=== PATIENT | female | born 1990 | race Caucasian/White ===

== ENCOUNTER 2017-01-08 14:22 | Emergency (ER) | payer MEDICAID ==
[~2017-01-08] VITALS: Ht 152.4 cm; Wt 102.7 kg
[~2017-01-08 14:22] MED LIST: CITA10TA4 PO; HYDR-3241 PO; METF500T4 PO; SPIR50TA2 PO; THYR60TA4 PO
[2017-01-08] MEDS ORDERED: ONDANSETRON 2MG/ML, 2ML ONE (15:28)
[2017-01-08] MEDS ORDERED: MORPHINE SULFATE 4 MG/ML, 1ML ONE (15:28)
[2017-01-08] MEDS ORDERED: MORPHINE SULFATE 4 MG/ML, 1ML IVPush ONE (15:30)
[2017-01-08] MEDS ORDERED: SODIUM CHLORIDE 0.9% 1,000ML IVBOLUS ONE (15:30)
[2017-01-08] MEDS ORDERED: SODIUM CHLORIDE FLUSH 10ML SYR IVF ONE (15:30)
[2017-01-08] MEDS ORDERED: ONDANSETRON 2MG/ML, 2ML IVPush ONE (15:30)
[2017-01-08 15:38] LABS: PATH.CAST-FLAG NOT PRESENT; SPERM-FLAG NOT PRESENT; SRC-FLAG NOT PRESENT; XTAL-FLAG NOT PRESENT; YLC-FLAG NOT PRESENT
[2017-01-08 15:43] LABS: BLOOD UREA NITROGEN 13 mg/dL (7-18)
[2017-01-08 15:49] LABS: ASPARTATE AMINO TRANSFERASE 19 U/L (15-37)
[2017-01-08] MEDS ORDERED: KETOROLAC 30 MG/1 ML ONE (16:20)
[2017-01-08] MEDS ORDERED: KETOROLAC 30 MG/1 ML IVPush ONE (16:30)
[2017-01-08 17:20] VITALS: BP 156/50
[2017-01-08] MEDS ORDERED: CEFTRIAXONE 1,000 MG ONE (17:42)
[2017-01-08] MEDS ORDERED: CEFTRIAXONE 1,000 MG IM ONE (18:00)
== END 2017-01-08 18:20 ==
LOC: ED 15:15
DX: R10.2 Pelvic and perineal pain (principal); E11.9 Type 2 diabetes mellitus without complications; N76.0 Acute vaginitis
CPT/HCPCS: 36415; 76830; 80053; 81001; 83690; 84703; 85025; 87086; 87210; 87491; 87591; 87808; 96361; 96372; 96374; 96375; 99285; J0696; J1885; J2405; J7030

== ENCOUNTER 2018-05-11 22:25 | Outpatient (CLI) | payer MEDICAID ==
[~2018-05-11] VITALS: Ht 152.4 cm; Wt 100.0 kg
[~2018-05-11 22:25] MED LIST changes: +METF500T17 PO; -METF500T4 PO; -SPIR50TA2 PO; +SPIR50TA4 PO
[2018-05-11 22:59] VITALS: BP 144/67
[2018-05-11] MEDS ORDERED: LEVO150T5 PO (23:01)
[2018-05-11] MEDS ORDERED: ASPI-496 PO (23:01)
[2018-05-11] MEDS ORDERED: PREN1TAB60 PO (23:01)
== END 2018-05-11 23:02 | disposition home or self-care (01) ==
LOC: LDOP 22:25
PROVIDERS: ATTEND Obstetrics & Gynecology Female Pelvic Medicine and Reconstructive Surgery
DX: O9A.212 Injury, poisoning and certain other consequences of external causes complicating pregnancy, second trimester (principal); Z3A.16 16 weeks gestation of pregnancy
CPT/HCPCS: 59025; 99211; G0463